=== PATIENT | female | born 1985 | race Caucasian/White ===

== ENCOUNTER 2017-10-21 07:41 | Outpatient (CLI) | payer OTHER | END 2017-10-21 07:52 | disposition home or self-care (01) | LOC: MAMO-SONO 07:41 | DX: N60.11 Diffuse cystic mastopathy of right breast (principal) ==

== ENCOUNTER 2017-11-04 06:49 | Outpatient (CLI) | payer OTHER | END 2017-11-04 07:00 | disposition home or self-care (01) | LOC: LAB 06:49 | DX: E03.8 Other specified hypothyroidism (principal); R34 Anuria and oliguria; R53.83 Other fatigue; N39.0 Urinary tract infection, site not specified; E55.9 Vitamin D deficiency, unspecified; E78.00 Pure hypercholesterolemia, unspecified; D51.8 Other vitamin B12 deficiency anemias ==